=== PATIENT | male | born 1965 | race Two or more races ===

== ENCOUNTER 2020-06-15 05:49 | Day surgery (SDC) | payer OTHER | END 2020-06-15 14:10 | disposition home or self-care (01) | LOC: CIR.AMB 05:49 → ADM 10:15 → CIR.AMB 10:15 | PROVIDERS: ATTEND Orthopaedic Surgery Hand Surgery | DX: M12.531 Traumatic arthropathy, right wrist (principal); Z20.828 Contact with and (suspected) exposure to other viral communicable diseases ==